=== PATIENT | female | born 2005 | race Caucasian/White ===

== ENCOUNTER 2024-11-15 20:32 | Inpatient (IN) | payer MEDICAID, SELFPAY ==
[2024-11-15 20:31] VITALS: BMI 33.9
[2024-11-15 20:42] VITALS: PULSE 125; O2SAT 97
[2024-11-15 20:43] VITALS: BP 147/77; PULSE 130; RESP 16; TEMP 37.2
[2024-11-15] MEDS: Lactated Ringers 1,000 ML 50 ML IV (20:45)
[2024-11-15 21:07] VITALS: BP 106/59; PULSE 118
[2024-11-15 21:21] LABS: Hematocrit 33.9 % (37-47); Hemoglobin 11.2 g/dL (12.0-15.0); Immature Granulocytes Count 0.190 X10^3/uL (0.0-0.0); Mean Corp Hgb Conc 33.0 g/dL (32-36); Mean Corpuscular Volume 87.6 fL (81-99); Mean Platelet Vol. 11.4 fl (6.2-12.0); NRBC Flagged by Analyzer 0 % (0-5); Platelet Count 260 K/mm3 (150-450); RBC Distribution Width CV 13.7 % (11.6-14.6); RBC Distribution Width SD 43.5 fl (35.1-43.9); Red Blood Count 3.87 M/mm3 (4.2-5.4); White Blood Count 15.6 K/mm3 (4.4-11.0)
[2024-11-15 21:46] LABS: Hepatitis C Antibody Nonreactive (Nonreactive)
[2024-11-15 21:52] LABS: Hepatitis B Surface Antigen Nonreactive (Nonreactive)
[2024-11-15 21:53] LABS: HIV Nonreactive (Nonreactive); Syphilis Antibodies Nonreactive (Nonreactive)
[2024-11-15 21:58] VITALS: BP 111/60; PULSE 98; RESP 16; TEMP 36.1; O2SAT 96
[2024-11-16] VITALS (66 sets, daily range): BP systolic 102–136; BP diastolic 53–93; PULSE 83–142; RESP 16; TEMP 36.2–37.2; O2SAT 81–100
[2024-11-16 00:47] LABS: Barbiturate Urine NEGATIVE (< 200 ng/mL); Benzodiazepine Urine NEGATIVE (< 200 ng/mL); PCP Urine NEGATIVE (< 25 ng/mL); THC Urine NEGATIVE (< 50 ng/mL)
[2024-11-16] MEDS: 0.9% Normal Saline Single 100 ML IV.SOLN. INTRA-UTER (07:33)
--- NOTE | 2024-11-16 07:40 | HP.PCM.OB_ITS ---
HPI - General General Date of Admission: 11/15/24 HPI Narrative DONALD BURRELL, is a 19 F who presents at 38w1d for induction of labor due to IUGR. Maternal Data Information ROBERT Calculator Estimated Delivery Date Method Current WG Current Estimate 11/29/24 Manual 38w 1d [facility] Medical History (Updated 11/16/24 @ 07:44 by Isabel Paz CNM) Anemia Home Medications ?Medication ?Instructions ?Recorded ?Last Taken ?Type ferrous sulfate 325 mg (65 mg 325 mg PO see provid 01/0211/15/24 08:00 History iron) tablet vit no.95-ferrous 1 tab PO DAILY see provider 11/15/24 11/15/24 08:00 History fumarate 28 mg-folic acid 800 mcg tablet () Allergy/AdvReac Type Severity Reaction Status Date / Time No Known Allergies Allergy Verified 11/15/24 20:47 Social History Smoking Status: Former smoker History Elective abortions Hx Para 0 Spontaneous abortions Hx # Term Pregnancies Ectopic pregnancies Hx # Pregnancies Multiple births # of living children NST FHR Rate Baby A Baseline: 140 Variability:: Moderate Accelerations:: 15 x 15 Decelerations:: None FHR Category:: Category I Uterine Activity:: Irregular ROS Constitutional Constitutional: Reports systems reviewed and no addt'l complaints, except as documented; Denies headache(s) Eyes Eyes: Denies acute decrease in peripheral vision, blurry vision or change in vision ENT HEENT: Reports systems reviewed and no addt'l complaints, except as documented Cardiovascular Cardiovascular: Denies chest pain or dizziness Respiratory/Chest Respiratory/Chest: Denies cough, dyspnea, dyspnea on exertion, shortness of breath at rest or shortness of breath with exertion Gastrointestinal Gastrointestinal: Denies abdominal pain, diarrhea, nausea or vomiting Genitourinary Genitourinary: Denies abdominal discomfort Musculoskeletal Musculoskeletal: Denies limited range of motion Integumentary Integumentary: Reports systems reviewed and no addt'l complaints, except as documented Neurologic Neurologic: Reports systems reviewed and no addt'l complaints, except as documented Psychiatric Psychiatric: Reports systems reviewed and no addt'l complaints, except as documented Endocrine Endocrinology: Reports systems reviewed and no addt'l complaints, except as documented Hematologic/Lymphatic Hematologic/Lymphatic: Reports systems reviewed and no addt'l complaints, except as documented Allergic/Immunologic Allergic/Immunologic: Reports systems reviewed and no addt'l complaints, except as documented Vital Signs Vital Signs Vital Signs: 11/15/24 20:42 11/15/24 20:42 11/15/24 20:43 Temperature Temperature Source Pulse Rate 125 H Respiratory Rate Blood Pressure 147/77 H BP Systolic 147 BP Diastolic 77 Pulse Ox 97 11/15/24 20:43 11/15/24 20:43 11/15/24 20:43 Temperature Temperature Source Temporal Pulse Rate 130 H Respiratory Rate 16 Blood Pressure BP Systolic BP Diastolic Pulse Ox 11/15/24 20:43 11/15/24 21:07 11/15/24 21:07 Temperature 98.9 F Temperature Source Pulse Rate 118 H Respiratory Rate Blood Pressure 106/59 L BP Systolic 106 BP Diastolic 59 Pulse Ox 11/15/24 21:58 11/15/24 21:58 11/15/24 21:58 Temperature Temperature Source Temporal Pulse Rate 98 Respiratory Rate Blood Pressure 111/60 BP Systolic 111 BP Diastolic 60 Pulse Ox 11/15/24 21:58 11/15/24 21:58 11/15/24 21:58 Temperature 96.9 F L Temperature Source Pulse Rate 98 Respiratory Rate 16 Blood Pressure BP Systolic BP Diastolic Pulse Ox 11/15/24 21:58 11/16/24 01:48 11/16/24 01:48 Temperature Temperature Source Pulse Rate 89 Respiratory Rate Blood Pressure 102/53 L BP Systolic 102 BP Diastolic 53 Pulse Ox 96 11/16/24 01:48 11/16/24 01:48 11/16/24 01:48 Temperature Temperature Source Temporal Pulse Rate Respiratory Rate 16 Blood Pressure BP Systolic BP Diastolic Pulse Ox 98 11/16/24 01:48 11/16/24 01:49 11/16/24 01:49 Temperature 97.2 F L Temperature Source Pulse Rate 91 Respiratory Rate Blood Pressure BP Systolic BP Diastolic Pulse Ox 92 11/16/24 05:49 11/16/24 05:49 11/16/24 05:49 Temperature Temperature Source Temporal Pulse Rate 93 Respiratory Rate Blood Pressure 120/58 L BP Systolic 120 BP Diastolic 58 Pulse Ox 11/16/24 05:49 11/16/24 05:49 11/16/24 05:49 Temperature 98.9 F Temperature Source Pulse Rate Respiratory Rate 16 Blood Pressure BP Systolic BP Diastolic Pulse Ox 98 11/16/24 07:17 11/16/24 07:17 11/16/24 07:17 Temperature Temperature Source Pulse Rate 95 Respiratory Rate 16 Blood Pressure 122/80 H BP Systolic 122 BP Diastolic 80 Pulse Ox Weight Weight: 222 lb 14.197 oz Body Mass Index (BMI) 33.9 Physical Exam Const alert and oriented x3 General Appearance: cooperative Orientation / Consciousness: awake, oriented to person, oriented to place and oriented to time Exam Limitations: no limitations HEENT normocephalic Head and Scalp: normal to inspection, normocephalic and atraumatic Face and Sinus: normal facial exam Eyes General Eye: normal appearance of both eyes Neck full ROM Chest Chest: symmetrical chest wall rise Resp normal respiratory effort and normal air movement Auscultation: clear to auscultation bilaterally Cardio regular rate, regular rhythm, S1 normal heart sound, S2 normal heart sound, no murmurs, no rub, no gallops and no clicks GI normal to inspection, nondistended, normoactive bowel sounds and non-tender appearance of the vagina normal Bladder / Kidney Exam: no CVA tenderness Manual OB Exam: estimated gestational size small, presentation cephalic, dilated 2, effaced 70, station -2 and other boo inserted through cervix, 30ml NS instilled Back/Spine normal ROM Extremity normal to inspection and full ROM Skin no rashes or lesions noted Neuro oriented x3, CN's II-XII intact bilaterally and moves all extremities Sensorium / Orientation: awake, alert and oriented to person Motor Exam: clonus absent Deep Tendon Reflexes: Rt Patellar (L4): 2+ and Lt Patellar (L4): 2+ Labs Labs Labs: Blood Type O NEGATIVE Antibody Screen NEGATIVE Hct 33.9 % (37-47) L Hgb 11.2 g/dL (12.0-15.0) L Syphilis Total Ab Nonreactive (Nonreactive) Rubella IgG Antibody REAC (Nonreactive) Hep Bs Antigen Nonreactive (Nonreactive) Hepatitis C Antibody Nonreactive (Nonreactive) HIV 1&2 Antibody Nonreactive (Nonreactive) GBS negative Assessment & Plan (1) Encounter for induction of labor: (2) IUGR (intrauterine growth restriction): (3) Rh negative status during : (4) Anemia affecting : (5) Obesity affecting : (6) 38 weeks gestation of : PLAN: Plan 1) Admit to labor and delivery 2) Routine labs 3) Continuous EFM 4) Pain management upon request 5) Cytotc and boo for cervical ripening. Will start pitocin at 10am 6) collaborative physician and notified of patient status, above assessment, and plan.
[2024-11-16] MEDS: Oxytocin 15 Units/NS 250ml 15 UNITS/250 ML IV.SOLN 2 UNITS IV (10:12)
[2024-11-16] MEDS: Lactated Ringers 1,000 ML 999 ML IV (11:00)
[2024-11-16] MEDS: fentaNYL-bupivacaine (epidural) 100 ML BAG EPIDURAL (11:58)
--- NOTE | 2024-11-16 13:24 | PCM.PN.BLA ---
Progress Note patient seen at bedside, VE: 4.5/70/-2 posterior cervix. AROM clear fluid and IUPC placed. Continue Pitocin. Anticipate . FHR remains Cat1 reactive.
--- NOTE | 2024-11-16 15:15 | EX.PCM.OBVAG ---
Maternal Data Information ROBERT Calculator Estimated Delivery Date Method Current WG Current Estimate 11/29/24 Manual 38w 1d Vaginal Delivery Maternal Presentation Maternal Presentation: Medically Indicated Induction Type of Induction: Pitocin, Chua Bulb and Cytotec Medical Reason for Induction: Compromise: list: (IUGR) Vaginal Delivery Information Procedure Performed: Spontaneous Vaginal Delivery Surgeon/Practitioner: Mai Bell Date of Procedure: 11/16/24 Pre-Procedure Diagnosis: IUGR, 38 weeks gestation, Obesity in , Rh Negative Post-Procedure Diagnosis: same, live male infant Type of anesthesia: Epidural Estimated Blood Loss: 50 Time of Delivery: 15:06 Findings Description of procedure: Patient went to fully dilated. Good maternal pushing efforts delivered the head followed by the anterior and posterior shoulder and the rest the 's body expelled spontaneously. There was a loose nuchal cord appreciated patient delivered through that nuchal and then the nuchal was reduced after delivery. Pitocin was started and with gentle traction on the cord of the placenta was delivered intact without complication. Inspection of the vagina and perineum revealed no lacerations. Good hemostasis. Fundus was firm lochia appropriate. Presentation: Vertex Amniotic Membrane Rupture Type: Artificial Amniotic Fluid Description: Clear Placental Delivery Description: Expressed Placenta Disposition: [facility] Specimen collected: Yes Description of specimen(s) removed: placenta Cord Vessel Description: 3 Vessels Cord Entanglement: Around neck x 1, loose Nuchal Cord Compression: Without compression Infant A Gender: Male (1 minute): 8 (5 minute): 8 Delayed Cord Clamping: Yes [employer] Field Agent telephone messenger: Yes Assistant Property Manager: thomas vick MS4 Tasks completed by airline pilot/first officer: Other (delivery of placenta ) Post Vaginal Deli Medications given after delivery: IV Pitocin Episiotomy Description: None Laceration: None Complication Complications: No
[2024-11-16] MEDS: Oxytocin 15 Units/NS 250ml 15 UNITS/250 ML IV.SOLN 83 UNITS IV (15:38)
[2024-11-16] MEDS: Rho(D) Immune Globulin 300 MCG (1500 Unit) Syringe IV (20:52)
[2024-11-17 03:25] VITALS: BP 109/60; PULSE 86; RESP 16; TEMP 36.4; O2SAT 98
[2024-11-17 08:00] VITALS: BP 102/69; PULSE 98; RESP 16; TEMP 36.9
--- NOTE | 2024-11-17 08:45 | PCM.PN.CNM ---
Subjective Subjective Patient seen at bedside. Denies any pain. Ambulating and voiding without difficulty. Lochia decreasing. Objective Data Objective Data Vital Signs: Vital Signs Temp Pulse Resp BP Pulse Ox O2 Del Method 97.5 F L 86 16 109/60 98 Room Air 11/17/24 03:25 11/17/24 03:25 11/17/24 03:25 11/17/24 03:25 11/17/24 03:25 11/17/24 03:25 Oxygen Delivery Method Room Air Weight: 222 lb 14.197 oz Body Mass Index (BMI) 33.9 Intake & Output: Intake and Output for Last 24 Hours 11/15/24 11/16/24 11/17/24 23:59 23:59 23:59 Intake Total 2942.43 / 2942.43 Output Total 850 / 850 Balance - 2092.43 / 2092.43 Lab / Micro Data Attestation: I reviewed the patient's lab results. 11/15/24 20:45 Labs: Laboratory Results - last 24 hr 11/16/24 17:45: Screen NEGATIVE, Baby's Blood Type O POSITIVE, Baby's LYUDMILA NEGATIVE ROS Eyes Eyes: Denies blurry vision, change in vision or spots in vision ENT HEENT: Denies dizziness or headache(s) Cardiovascular Cardiovascular: Denies abdominal pain, chest pain or dyspnea Respiratory/Chest Respiratory/Chest: Denies cough, dyspnea, shortness of breath at rest or shortness of breath with exertion Gastrointestinal Gastrointestinal: Denies abdominal pain, diarrhea or vomiting Genitourinary Genitourinary: Denies change in urinary stream, difficulty urinating or dysuria Musculoskeletal Musculoskeletal: Reports none Integumentary Integumentary: Denies rash Neurologic Neurologic: Denies dizziness, headache(s), memory loss or weakness Physical Exam Const alert and no apparent distress General Appearance: cooperative and comfortable Exam Limitations: no limitations HEENT normocephalic Eyes General Eye: normal appearance of both eyes Neck full ROM General: normal visual inspection Chest Chest: symmetrical chest wall rise Resp normal respiratory effort and normal air movement Effort and Inspection: symmetric chest movement Auscultation: clear to auscultation bilaterally Cardio regular rate and regular rhythm GI normal to inspection, nondistended, normoactive bowel sounds Back/Spine normal ROM Extremity full ROM and no calf tenderness General Extremity: normal exam except as noted Skin no rashes or lesions noted Neuro oriented x3 Speech: speech normal Psych mental status grossly normal Thought Process: normal thought process Assessment & Plan (1) (spontaneous vaginal delivery): PLAN: Plan PPD 1 Formula feeding Desires discharge home tomorrow
[2024-11-17 12:00] VITALS: BP 112/69; PULSE 80; RESP 16; TEMP 36.8
[2024-11-17 16:00] VITALS: BP 104/79; PULSE 89; RESP 16; TEMP 36.7
[2024-11-17 20:00] VITALS: BP 140/79; PULSE 74; RESP 17; TEMP 36.7; O2SAT 98
[2024-11-17] MEDS: Senna/Docusate Sodium 1 Tablet PO (20:36)
[2024-11-18 02:00] VITALS: BP 124/88; PULSE 103; RESP 17; TEMP 36.6; O2SAT 97
--- NOTE | 2024-11-18 07:25 | DS.PCM_ITS ---
Providers Date of Admission: 11/15/24 Primary Care Physician: No Primary Care Phys Reason For Visit: VAGINAL DELIVERY Diagnosis Discharge Diagnosis (1) (spontaneous vaginal delivery): Status: Acute Code(s): O80 - Encounter for full-term uncomplicated delivery Plan PPD 2 Formula feeding D/C home with follow up in office Medications at Discharge Home Medications ferrous sulfate 325 mg (65 mg iron) tablet 325 mg PO see provid 11/15/24 vit no.95-ferrous fumarate 28 mg-folic acid 800 mcg tablet () 1 tab PO DAILY see provider 11/15/24 Hospital Course Operations None Procedures None Summary of Care Provided Minutes Spent on Discharge: 15 Hospital Course: Patient had vaginal delivery. Hospital course was uneventful. Physical Exam Narrative Patient seen at bedside. Denies pain. Ambulating and voiding without difficulty. Lochia decreased. Desires discharge home today. Const alert and oriented x3 General Appearance: Negative for in distress HEENT normocephalic Eyes General Eye: normal appearance of both eyes Neck General: normal visual inspection Chest Chest: symmetrical chest wall rise Resp normal respiratory effort and normal air movement Effort and Inspection: symmetric chest movement; Negative for tachypneic Auscultation: clear to auscultation bilaterally Cardio regular rate and regular rhythm Peripheral Pulses: pulses 2+ throughout GI normal to inspection, nondistended, normoactive bowel sounds Narrative: Ice to perineum OB / External & Speculum: vaginal bleeding and other Lochia decreasing Uterus Palpation: uterus fundus firm (Below U) Extremity normal to inspection, full ROM and normal capillary refill Skin no rashes or lesions noted Neuro oriented x3, CN's II-XII intact bilaterally and gait normal Psych mental status grossly normal, thought process normal and activity/motor behavior normal Weight / BMI Weight Weight: 222 lb 14.197 oz Body Mass Index (BMI) 33.9 ABG / Lab / Microbiology Data 11/15/24 20:45 D/C Instructions Discharge Diet: No restrictions Discharge Activity: Return to Normal Activity, No Restrictions, May Drive, May Shower and May Take a Tub Bath (Warm water only. No bath salts, soaps, bubbles) May resume sexual activity in: 6-8 weeks Weight Bearing Status: Weight bearing as tolerated Call your doctor if you observe: Fever of 101 or Higher, Inability to urinate, Using more than 1 pad per hour, Shortness of breath, Dizziness, Chest pain, Calf discomfort and Uncontrolled pain DC O2, CPAP, BIPAP Needs Home O2 Discharge instructions: No Please Follow Up With: [facility] Adelso DONOVAN When: 2 weeks in office or virtual Meaningful Use Info Meaningful Use Meaningful Use Diagnoses (Choose all that apply): None applicable Ischemic Stroke Statin Dosing Therapy Reference: STATIN DOSE THERAPY REFERENCE: * Patients > 75 years receive moderate or high dose statin therapy. * Patients 75 years or YOUNGER should receive HIGH intensity statin dose unless contraindicated. You will be required to document reason for non-treatment if statin daily dose does not meet guidelines. HIGH DOSE STATIN THERAPY DAILY Atorvastatin > than or = to 40 mg Rosuvastatin > than or = to 20 mg Amlodipine + Atorvastatin > than or = to 2.5/40 mg Ezetimibe + Simvastatin 10/80 mg Simvastatin 80mg Discharge Plan Admission Admit Date/Time: 11/15/24 20:32 Primary Reason for Your Visit: Labor and Delivery Attending Provider: Mai Bell Primary Care Provider: Care Physician,No Primary Discharge Orders/Prescriptions Prescriptions: Continued PNV cmb#95-ferrous fumarate-FA [] 28 mg iron- 800 mcg tablet 1 tab PO DAILY ferrous sulfate 325 mg (65 mg iron) tablet 325 mg PO Referrals / Follow Up: Milka Hernandez CNM [Med Staff - Adv Practice Prof] - Care Physician,No Primary [Primary Care Provider] - Disposition Disposition (needs filled in before D/C Order can be placed): Home, Self Care
[2024-11-18 09:00] VITALS: BP 119/64; PULSE 97; RESP 16; TEMP 36.6
== END 2024-11-18 10:30 | disposition home or self-care (01) | DRG 560 ==
PROVIDERS: Admitting Provider Advanced Practice Midwife; Referring Provider Obstetrics & Gynecology; Visit Provider Obstetrics & Gynecology
DX: O36.5930 Maternal care for other known or suspected poor fetal growth, third trimester, not applicable or unspecified (principal); Z37.0 Single live birth; O26.893 Other specified pregnancy related conditions, third trimester; O99.214 Obesity complicating childbirth; Z67.41 Type O blood, Rh negative; O99.02 Anemia complicating childbirth; O69.81X0 Labor and delivery complicated by cord around neck, without compression, not applicable or unspecified; Z3A.38 38 weeks gestation of pregnancy; Z87.891 Personal history of nicotine dependence
CPT/HCPCS: 59025; 59050; 80307; 85025; 85461; 86703; 86762; 86780; 86803; 86850; 86900; 86901; 87340; 90384; 99221; G0378; J2790; J2791